=== PATIENT | male | born 1950 | race Caucasian/White ===

== ENCOUNTER 2021-10-18 13:06 | Emergency (ER) | payer MEDICARE, SELFPAY ==
[2021-10-18 13:08] VITALS: TEMP 35.8; BMI 33.6
--- NOTE | 2021-10-18 13:13 | EDS_ITS ---
HPI History of Present Illness Chief Complaint: CPR Detail of Chief Complaint: Unresponsive patient brought in by squad. Informant: EMS Onset/Context/Timing Onset: Today Context: Sudden Onset Timing: Continuous Current Severity: Severe Maximum Severity: Severe Narrative Narrative: 71-year-old male history of a prior CABG. Reportedly Covid positive. Called the squad himself today stating he was short of breath. Squad was at his home when he went to get him is sitting in the bottom of the steps. He became unresponsive and asystolic. Squad began CPR and rounds of epinephrine. After 3 rounds of epinephrine and 1 of atropine they were able to obtain a pulse. That lasted 2 minutes or less and then the patient again went asystolic. He went between PEA and asystole without a pulse. The first episode lasted about 10 minutes. The second episode is been at least 10 minutes. He has had a total of 6 rounds of epinephrine. Prior similar symptoms: No Recent Illness/Hospitalization: No PFSH PFSH Allergy/AdvReac Type Severity Reaction Status Date / Time No Known Allergies Allergy Verified 04/16/14 00:31 Social History Smoking Status: Never smoker ROS ROS ED ROS Narrative Unable to obtain due to the patient's severe condition of being unresponsive. Patient has an eye gel airway in place. Review of Systems ROS Unobtainable: due to mental status Respiratory/Chest Respiratory/Chest: Reports dyspnea EXAM Physical Exam Narrative Exam Narrative: Older male. No palpable pulse. I gel airway in place. CPR machine in place and doing compressions. H EENT exam atraumatic. Pupils are about 2 mm bilaterally and unresponsive. Not dilated. Trachea midline. Lungs clear to auscultation with bagging. No cardiac activity noted on the monitor or on ultrasound. Abdomen soft and nontender. Extremities are flaccid. No palpable radial, carotid or femoral pulses. He is completely unresponsive to noxious or verbal stimuli. Const Vital Signs: 10/18/21 13:08 Temperature 96.5 F L Temperature Source Temporal Positive well nourished, well developed and obese; Negative for cachectic, contractures or unkempt Constitutional Narrative: Ongoing CPR. General Appearance ED: well developed and pallor; Negative for unkempt, cach ectic, contractures or NAD Nutritional Appearance: obese; Negative for cachectic HEENT normocephalic and atraumatic Eyes Negative for PERRL or EOMs intact bilaterally Eyes Narrative: Pupils are 2 mm bilaterally and nonreactive. Neck No full ROM, no lymphadenopathy and no JVD Cardio Negative for regular rate, regular rhythm, S1 normal heart sound, S2 normal heart sound or no murmurs Cardio Narrative: Intermittent asystole along with bradycardic PEA on the monitor. Rate: Negative for bradycardia or tachycardic GI non-tender, non-distended and no masses Inspection: Negative for abdominal distention Auscultation: normoactive bowel sounds Palpation: soft; Negative for tender or guarding Neuro Neuro Narrative: Patient completely unresponsive to noxious or verbal stimuli. No spontaneous movements. No spontaneous respirations. Psych Appearance: Negative for unkempt Skin Skin Narrative: Mottled lower extremities. General Skin Exam: pallor; Negative for jaundice Lesions: no lesions Rashes: no rashes MDM MDM MDM Narrative Medical decision making narrative: 69-year-old male prior CABG recent Covid. Arrested in front of the paramedics. They started CPR and treating him with epinephrine. His first episode of PEA lasted about 10 minutes. Without a pulse . He did get a pulse return after 3 rounds of epinephrine and 1 of atropine. That lasted about 2 minutes and has been unresponsive and pulseless for 10+ more minutes. He had a total now of 6 rounds of epinephrine. He had no palpable pulses. He is completely unresponsive. And on ultrasound he had no cardiac activity whatsoever. Patient was pronounced at 1:09 PM. Discharge Plan Triage Chief Complaint: CPR ED Provider: Abe Farrell Dx/Rx/DC Orders Clinical Impression: Cardiopulmonary arrest, Patient pronounced , History of coronary artery disease, Hx of CABG, COVID-19 Disposition Disposition:
--- NOTE | 2021-10-18 15:49 | ED.RN ---
[facility] ARRIVED AND TOOK PT
== END 2021-10-18 16:21 ==
PROVIDERS: Emergency Provider Emergency Medicine
DX: I46.9 Cardiac arrest, cause unspecified (principal); U07.1 COVID-19; I25.10 Atherosclerotic heart disease of native coronary artery without angina pectoris; Z95.1 Presence of aortocoronary bypass graft
CPT/HCPCS: 99282